=== PATIENT | male | born 1970 | race Hispanic/Latino ===

== ENCOUNTER 2024-01-18 10:19 | Emergency (ER) | payer SELFPAY ==
[~2024-01-18] VITALS: Ht 175.3 cm; Wt 77.1 kg
[2024-01-18 10:33] VITALS: TEMP 98.3
--- NOTE | 2024-01-18 10:37 | ERN ---
ED Note History of Present Illness Stated Complaint: RIGHT ARM PAIN Chief Complaint: Upper Extremity Pain/Injury Time Seen by MD: 10:23 Dictation: PATIENT IS A 53-YEAR-OLD MALE HERE WITH NON TRAUMA RIGHT ANTERIOR SHOULDER PAIN WORSE WHEN HE RANGES HIS ARM FOR ONE MONTH. 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 STATES HE HAS TAKEN [id number] TOPICALS AND IBUPROFEN HOWEVER DOES NOT HELP WITH THE PAIN. NO PRIMARY CARE DOCTOR. Allergies: Coded Allergies: No Known Drug Allergies (Unverified Allergy, Unknown, 01/18/24) Past Medical History RN Note Reviewed/Agreed w/PFSH: Yes Review of System Dictation CONSTITUTIONAL: NEGATIVE EXCEPT FOR HPI HEAD/FACE: NEGATIVE EXCEPT FOR HPI EENT: NEGATIVE EXCEPT FOR HPI RESPIRATORY: NEGATIVE EXCEPT FOR HPI GASTROINTESTINAL/ABDOMINAL: NEGATIVE EXCEPT FOR HPI GENITOURINARY: NEGATIVE EXCEPT FOR HPI MUSCULOSKELETAL: NEGATIVE EXCEPT FOR HPI RIGHT SHOULDER PAIN INTEGUMENTARY: NEGATIVE EXCEPT FOR HPI NEUROLOGICAL/PSYCH: NEGATIVE EXCEPT FOR HPI HEMATOLOGIC/LYMPHATIC: NEGATIVE EXCEPT FOR HPI ALL SYSTEMS NEGATIVE, EXCEPT NOTED ABOVE. 13 POINT REVIEW OF SYSTEMS ASSESSED AND ALL NEGATIVE EXCEPT FOR ABOVE. Initial Vital Sign VS Vital Signs Date Time Temp Pulse Resp B/P (MAP) Pulse Ox O2 Delivery O2 Flow Rate FiO2 01/18/24 10:33 98.2 73 16 98 Room Air* 0 21 Physical Exam Dictation VITAL SIGNS REVIEWED GENERAL APPEARANCE: ALERT, ORIENTED X 3, MODERATE ACUTE DISTRESS, WELL DEVELOPED, NOURISHED. HEAD AND FACE: NON-TRAUMATIC. EYES: PERRL, PINK CONJUNCTIVAS, EYELID NO TRAUMA, ANTERIOR CHAMBER WITH ARCUS SENILIS. EARS: PINNAS INTACT AND NO SIGNS OF TRAUMA OR ERYTHEMA EAR CANALS CLEAR AND NO DISCHARGE TM NO ERYTHEMA NOSE: NO DISCHARGE, NO BLEEDING. OROPHARYNX: MOUTH NORMAL, TONGUE PINK, PHARYNX CLEAR,NO ERYTHEMA, TONSILS NO EXUDATES, NO ABSCESSES NOTED, MUCOUS MEMBRANE MOIST NECK: SUPPLE, NON-TENDER, NO THYROMEGALY, NO MASSES, NO JVD, NO BRUITS BREAST:DEFERRED CHEST:NO TENDERNESS, NO CREPITUS, NO PARADOXICAL MOVEMENT, NO RETRACTIONS LUNGS:CLEAR, WELL-VENTILATED, SYMMETRIC, NO RALES, NO WHEEZING, NO RHONCHI, NO STRIDOR, GOOD BREATH SOUNDS BILATERALLY HEART: REGULAR RATE, REGULAR RHYTHM, NO MURMUR, NO GALLOPS VASCULAR: NO PERIPHERAL EDEMA, ABDOMEN: SOFT, POSITIVE BOWEL SOUNDS, NONDISTENDED, NO GUARDING, NONTENDER, NO REBOUND, NO MASSES NO HEPATOMEGALY, NO SPLENOMEGALY, NO ALARCON'S SIGN, NO HERNIAS. RECTAL: DEFERRED GENITAL: DEFERRED NEUROLOGICAL: NORMAL SPEECH, MOTOR FUNCTION INTACT, SENSORY FUNCTION INTACT MUSCULOSKELETAL: NECK NONTENDER, FULL RANGE OF MOTION, BACK NONTENDER, FULL RANGE OF MOTION, EXTREMITIES: FULL RANGE OF MOTION NOTE TO RIGHT SHOULDER HOWEVER TENDERNESS TO ANTERIOR DELTOID WITH ABDUCTION OR ROTATION SKIN: COLOR PINK, DRY, NO TURGOR, NO RASH, NO LACERATIONS, NO ABRASIONS, NO CONTUSIONS. LYMPHATIC: DEFERRED Results (Laboratory/Radiology) Laboratory/Radiology SHOULDER COMP 2+VWS RT HISTORY: Pain COMPARISON: None TECHNIQUE: 3 images of right shoulder were obtained. FINDINGS: There is no acute displaced fracture or dislocation. Degenerative changes are seen. IMPRESSION: 1. Findings as described above. Labs Reviewed?: Yes ED Course ED Course Orders Procedure Category Date Status Time Shoulder Comp 2+Vws Rt RAD 01/18/24 Resulted 10:35 Ibuprofen 800 Mg Tab PHA 01/18/24 Complete (Motrin) 11:00 Dexamethasone 4mg/Ml PHA 01/18/24 Complete 1ml Vial (Dexametha 11:00 Current Medications Medications (Trade) Dose Ordered Sig/Mack Route PRN Reason Start Time Stop Time Status Last Admin Dose Admin Dexamethasone Sodium Phosphate (dexaMETHasone 4MG/ML 1ML VIAL) 8 mg ONCE ONCE IM 01/18/24 11:00 01/18/24 11:01 DC 01/18/24 10:45 Ibuprofen (moTRIN) 800 mg ONCE ONCE PO 01/18/24 11:00 01/18/24 11:01 DC 01/18/24 10:46 Vital Signs Date Time Temp Pulse Resp B/P (MAP) Pulse Ox O2 Delivery O2 Flow Rate FiO2 01/18/24 10:33 98.2 80 16 148/105 98 Room Air 0 01/18/24 10:33 98.2 73 16 98 Room Air* 0 21 1135, PATIENT STATES PAIN IS IMPROVED AFTER TREATMENT. DISCHARGED HOME WITH DIAGNOSIS OF SHOULDER STRAIN WITH MEDROL DOSEPAK AND IBUPROFEN TOLD TO SEE ORTHOPEDIC SURGEON IN 2-3 DAYS, CALL FOR AN APPOINTMENT. Medical Decision Making MDM MEDICAL DISCHARGE MAKING BASED ON EMPIRIC TREATMENT FOR ACUTE SHOULDER PAIN AND X-RAY. X-RAY READ NEGATIVE BY RADIOLOGIST PATIENT DISCHARGED HOME WITH MEDROL DOSEPAK AND IBUPROFEN GIVEN THE NAME OF ORTHOPEDIC SURGEON TO FOLLOW UP IN SEVERAL DAYS IF NEEDED DX & DISP Disposition: Discharge Departure Impression: Primary Impression: Right shoulder strain Condition: Stable Scripts Ibuprofen (Ibuprofen 800 mg Tab) 800 Mg Tab 800 MG PO Q6H PRN for PAIN, #30 TAB Prov: ZENON CARMEN NP 01/18/24 Methylprednisolone (Medrol) 4 Mg Tab.ds.pk 1 TAB PO AD for 6 Days, #21 TAB 0 Refills 6 on day 1 then reduce by one tablet daily until gone Prov: ZENON CARMEN COMPLIANCE MGR 01/18/24 Additional Instructions: FOLLOW-UP WITH PRIMARY CARE PROVIDER IN 1 TO 2 DAYS. TAKE MEDICATIONS DIRECTED HERE IN THE EMERGENCY ROOM. OKAY TO CONTINUE HOME MEDICATIONS UNLESS OTHERWISE DISCUSSED DURING YOUR VISIT IN THE EMERGENCY ROOM TODAY. RETURN TO YOUR NEAREST EMERGENCY ROOM IF SYMPTOMS WORSEN OR IF THERE IS NO IMPROVEMENT. CALL 911 IF YOU NEED IMMEDIATE ASSISTANCE. TAKE TYLENOL OR MOTRIN [id number] NEEDED AND IF NO CONTRAINDICATIONS ARE PRESENT. INCREASE ORAL HYDRATION. A WOUND CULTURE OR URINE CULTURE WAS ORDERED HERE IN THE EMERGENCY ROOM DEPARTMENT PLEASE FOLLOW-UP WITH PRIMARY CARE PROVIDER AND ADVISE THEM TO GET REPEAT PORTS FROM OUR FACILITY. IF YOU HAD ANY HOLDEN WRAP/SPLINTS THAT WERE APPLIED HERE, PLEASE DO NOT REMOVE THEM UNTIL YOU SEE YOUR PRIMARY CARE OR SPECIALTY. TAKE MEDROL DOSEPAK DIRECTED UNTIL GONE. TAKE IBUPROFEN EVERY8 HOURS WITH FOOD FOR TWO DAYS. WARM COMPRESSES TO PAIN THREE TO 4 TIMES A DAY., CALL O RTHOPEDIC SURGEON FOR APPOINTMENT NEXT WEEK NEEDED. Referrals: SELF,REFERRAL (PCP) DANIELLE RONDON MD Time of Disposition: 11:37 I have reviewed the case, and I agree with, Diagnosis and Plan ZENON CARMEN NP Jan 18, 2024 10:37
[2024-01-18] MEDS: dexaMETHasone SOD PHOSPHATE 4 MG/ML 1ML VIAL IM ONE (10:45)
[2024-01-18] MEDS: ibuPROFEN 800 MG TAB PO ONE (10:46)
--- NOTE | 2024-01-18 11:25 | HMCIMG ---
SHOULDER COMP 2+VWS RT HISTORY: Pain COMPARISON: None TECHNIQUE: 3 images of right shoulder were obtained. FINDINGS: There is no acute displaced fracture or dislocation. Degenerative changes are seen. IMPRESSION: 1. Findings as described above.
[2024-01-18 11:30] VITALS: BP 126/71; PULSE 79; RESP 16; O2SAT 99
[2024-01-18] MEDS ORDERED: IBUP-2077 PO (11:38)
[2024-01-18] MEDS ORDERED: METH4TAB3 PO (11:38)
== END 2024-01-18 12:01 | disposition home or self-care (01) ==
LOC: EDH 10:19
DX: S46.811A Strain of other muscles, fascia and tendons at shoulder and upper arm level, right arm, initial encounter (principal); X58.XXXA Exposure to other specified factors, initial encounter; Y93.89 Activity, other specified; Y92.89 Other specified places as the place of occurrence of the external cause; Y99.8 Other external cause status
CPT/HCPCS: 99283; 73030; 96372; J1100